=== PATIENT | male | born 2000 | race Caucasian/White ===

== ENCOUNTER 2021-02-16 10:53 | Outpatient (RCR) | payer OTHER, SELFPAY | END 2021-04-04 23:59 | LOC: IMMUN 10:53 | PROVIDERS: PCP Pediatrics; Referring Provider Family Medicine; Visit Provider Family Medicine | DX: Z23 Encounter for immunization (principal) | CPT/HCPCS: 0001A; 0002A; 91300 ==

== ENCOUNTER → 2022-04-26 | Outpatient (CLI) | payer OTHER, SELFPAY ==
[2022-04-26 10:41] LABS: AST(SGOT) 28 U/L (15-37); Alanine Aminotransfer ALT/SGPT 37 U/L (16-61); Albumin, Serum 4.1 g/dL (3.2-5.0); Alkaline Phosphatase 88 U/L (45-117); Bilirubin, Direct 0.14 mg/dL (0.00-0.30); Cholesterol 129 mg/dL (200); Globulin 3.1 g/dL (2.2-4.2); High Density Lipoprotein 38 mg/dL; Protein, Total 7.2 g/dL (6.4-8.2); Triglycerides 68 mg/dL; Very Low Density Lipoprotein 14 mg/dL (5-40)
== END | disposition home or self-care (01) ==
LOC: MTLAB 07:10
PROVIDERS: PCP Pediatrics; Referring Provider Dermatology; Visit Provider Dermatology
DX: L70.0 Acne vulgaris (principal); Z79.899 Other long term (current) drug therapy
CPT/HCPCS: 36415; 80061; 80076

== ENCOUNTER → 2022-06-25 | Outpatient (CLI) | payer OTHER, SELFPAY ==
[2022-06-25 12:33] LABS: AST(SGOT) 38 U/L (15-37); Alanine Aminotransfer ALT/SGPT 47 U/L (16-61); Cholesterol 163 mg/dL (200); High Density Lipoprotein 40 mg/dL; Triglycerides 62 mg/dL; Very Low Density Lipoprotein 12 mg/dL (5-40)
== END | disposition home or self-care (01) ==
PROVIDERS: Referring Provider Physician Assistant; Visit Provider Physician Assistant
DX: L70.0 Acne vulgaris (principal); Z79.899 Other long term (current) drug therapy
CPT/HCPCS: 36415; 80061; 84450; 84460

== ENCOUNTER 2024-11-02 16:27 | Outpatient (RCR) | payer BC, SELFPAY ==
--- NOTE | 2024-11-02 17:27 | HP.PTEVAL_ITS ---
Patient's Visit Information Visit Information Visit Information: RHETT LOVE is a 23 year old M referred to Physical Therapy by Gideon Espino PA-C with a diagnosis of PAIN RIGHT KNEE ,JOINT DISORDER. Date of Evaluation: 11/02/24 Physical Therapist: Elvis Zamudio, PT, Cert MDT, OCS Visit Plan Frequency: 1VISIT Plan: PT EVAL ONLY D/C TO HEP AND APPROPRIATE GYM EX'S Subjective Subjective: This 23 y/o male presents to physical therapy with right knee pain. Patient has had right knee pain in August with edema . Initially had edema so seen [facility] prescribed prednisone. Patient had imaging and referred [facility] and recommended medication. Patient is getting with edema. Patient c/o clicking when squatting. Patient has pain with squatting ,kneeling . Alleviating factors rest. Denies parestehesia/tingling -. Sleeping good. Patient plays [employer]. Patient goals to decrease pain and play. SOCIAL: single VOCATION: [employer] Objective Objective: POSTURE: WFL GAIT: reciprocal pattern PALPATION: absent NEURO: denies parastshia/tingling FLEXABILITY: hamstrings WFL ,quads mild tight right MMT: 5/5 quads/hams ,hip flexion 4/5 ,hip abd 4-/5 Goals Goal 1:: Patient was provided with HEP for knee Goal Time Frame: 4-6 Weeks Rehabilitation Potential Physical Therapy Diagnosis: This patient developed knee pain with edema is better provided strengthening programing and stretching for HEP Rehabilitation Potential: Good Anticipated Interventions Patient/Client Instruction: Educate patient on: Condition and Plan of Care For the Purpose of:: To decrease pain and Other Other: HEP Text: Thank you for the opportunity to evaluate your patient. For Medicare and Medicare HMO plans, please review the plan of care and approve it. It will need to be FAXED BACK to us at [phone] for Medicare purposes. For Medicare only, by signing this I certify the plan of care. Please let me know if there are questions or concerns regarding this plan of care. Physician Signature: Date:
== END 2024-11-02 19:00 | disposition home or self-care (01) ==
LOC: PT 16:27
PROVIDERS: Referring Provider Physician Assistant; Visit Provider Physician Assistant
DX: M25.861 Other specified joint disorders, right knee (principal); M25.561 Pain in right knee
CPT/HCPCS: 97110; 97161